=== PATIENT | male | born 1985 | race Caucasian/White ===

== ENCOUNTER 2020-11-10 17:08 | Emergency (ER) | payer OTHER ==
[~2020-11-10] VITALS: Ht 182.9 cm; Wt 104.3 kg
[2020-11-10] MEDS ORDERED: HYDROCODON-ACE1 EAC7 PO (17:19)
[2020-11-10] MEDS ORDERED: AMOXICILLIN 50500 MG PO (17:19)
[2020-11-10 17:55] VITALS: BP 162/88
== END 2020-11-10 17:55 | disposition home or self-care (01) ==
LOC: M.ERS 17:08
DX: K04.7 Periapical abscess without sinus (principal); F17.210 Nicotine dependence, cigarettes, uncomplicated; Z88.5 Allergy status to narcotic agent